=== PATIENT | female | born 1995 | race Caucasian/White ===

== ENCOUNTER → 2016-12-14 | Day surgery (SDC) | payer OTHER ==
[~2016-12-14] VITALS: Ht 154.9 cm; Wt 86.2 kg
[~2016-12-14] MED LIST: BUPIVACAINE/EPIN 0.25% 30 ML VIAL As Ordered ONE; BUPIVACAINE/EPIN 0.25% 30 ML VIAL XX ONE; CIPR500T89 PO; CONRAY-60 60% 50ML VIAL (Q9961) As Ordered ONE; GLUCAGON FOR INJ 1 MG VIAL (J1610) As Ordered ONE; GLYCOPYRROLATE INJ 0.2 MG/ML 2 ML VIAL As Ordered ONE; KETOROLAC 30 MG/ML VIAL (J1885) IV PRN; KETOROLAC 60 MG/2 ML VIAL (J1885) As Ordered ONE; LIDOCAINE 2% INJ 100 MG/5 ML SDV (FOR ANES.) As Ordered ONE; LR 1,000 ML IV SCH; MIDAZOLAM INJ 2 MG/2 ML VIAL (J2250) As Ordered ONE; MORPHINE 2 MG/ML 1ML SYRINGE IV PRN; NEOSTIGMINE 1MG/ML 5 ML SYRINGE (J2710) As Ordered ONE; ONDANSETRON 4MG/2ML VIAL (J2405) As Ordered ONE; ONDANSETRON 4MG/2ML VIAL (J2405) IV PRN; OXYC1TAB23 PO; PERCOCET 5MG/325MG TAB As Ordered ONE; PROPOFOL 200 MG/20 ML VIAL As Ordered ONE; ROCURONIUM BROMIDE 50 MG/5 ML VIAL As Ordered ONE; ZOFR20TA PO; ceFAZolin SOD 1 GM in D5W MINI-BAG PLUS 50 ML IV ONE; fentaNYL 100 MCG/2 ML INJECTION (J3010) As Ordered ONE
[2016-12-14 09:12] LABS: CONTROL LINE UCG INT CTR LINE PRESENT
--- NOTE | 2016-12-14 12:24 | RO ---
DATE OF PROCEDURE: 12/14/2016 PREPROCEDURE DIAGNOSIS: Symptomatic gallstones. POSTOPERATIVE DIAGNOSIS: Symptomatic gallstones. PROCEDURE: Laparoscopic cholecystectomy. SURGEON: Edinson Barnes MD ANESTHESIA: General endotracheal anesthesia. ESTIMATED BLOOD LOSS: Minimal. FLUIDS: Crystalloid. DESCRIPTION OF PROCEDURE: The patient was brought to the operating room and was given general anesthesia. After adequate anesthesia and preoperative antibiotics were given, the patient was prepped and draped in the usual sterile fashion. Next, a supraumbilical incision was made with skin knife. Electrocautery was used to cut through dermis, underlying subcutaneous tissue down to the base of the umbilicus, which was grasped with Ravi clamps, elevated, and a Veress needle placed into the abdominal cavity, insufflated to 15 mm pressure. A dilating 10 mm trocar was placed in the umbilicus and under direct visualization an epigastric and two lateral trocars were placed. The gallbladder was seen and retracted superiorly and was then dissected off surrounding structures, i.e. omentum with the hook cautery. The neck of the gallbladder was cleared of peritoneum with hook cautery on the lateral aspect and this continued along the anterior aspect all the way over to the cystic artery area. Once the peritoneum was taken down anteriorly and on the medial and lateral side, a good window behind the neck of the gallbladder was created using a combination of blunt dissection, as well as the hook cautery. The artery was well visualized. A posterior approach starting laterally was used to create a nice window behind the gallbladder itself. Once this was circumferentially visualized, further dissection along the neck of the gallbladder down to the cystic artery was performed. Cystic duct was well visualized. The cystic artery was well visualized, giving a nice critical view of safety and both were clipped proximally and distally and transected. The gallbladder then was removed from the gallbladder bed using electrocautery and taken out through the umbilicus in an EndoCatch bag. The right upper quadrant was copiously irrigated until clear. All incisions were closed with #4-0 Vicryl after the umbilical site was closed with #0 Vicryl at the fascial layer. Steri-Strips and dry sterile dressing was applied. The patient was awakened, extubated, brought to recovery room awake, alert, hemodynamically stable. Sponge and needle counts correct times two.
[2016-12-14] MEDS: fentaNYL 100 MCG/2 ML INJECTION (J3010) IV PRN ×4 (12:40→12:55)
[2016-12-14] MEDS: PERCOCET 5MG/325MG TAB PO PRN ×2 (12:40→13:50)
[2016-12-14 14:10] VITALS: BP 118/58
== END | disposition home or self-care (01) ==
LOC: M SDC 08:25
PROVIDERS: ATTEND Surgery
DX: K80.18 Calculus of gallbladder with other cholecystitis without obstruction (principal); F17.210 Nicotine dependence, cigarettes, uncomplicated; Z88.8 Allergy status to other drugs, medicaments and biological substances
CPT/HCPCS: 47562; 84703; 88304; J0690; J1885; J2250; J2405; J2710; J3010